=== PATIENT | female | born 1990 | race Caucasian/White ===

== ENCOUNTER 2021-04-14 09:45 | Outpatient (CLI) | payer BC ==
[2021-04-14] MEDS ORDERED: BETAMET ACET-BETAMETH SOD PHOS 6 MG/ML MDV IM SCH (10:00)
[2021-04-14 10:33] VITALS: BP 143/78; PULSE 107
== END 2021-04-14 10:30 | disposition home or self-care (01) ==
LOC: FBPOP 09:45
PROVIDERS: ATTEND Obstetrics & Gynecology Obstetrics
DX: O36.0191 Maternal care for anti-D [Rh] antibodies, unspecified trimester, fetus 1 (principal); Z3A.00 Weeks of gestation of pregnancy not specified
CPT/HCPCS: 96372; J0702

== ENCOUNTER 2021-04-15 10:40 | Outpatient (CLI) | payer BC ==
[2021-04-15] MEDS ORDERED: BETAMET ACET-BETAMETH SOD PHOS 6 MG/ML MDV IM SCH (11:00)
[2021-04-15 11:16] VITALS: BP 133/78; PULSE 104; RESP 18; TEMP 98.1
== END 2021-04-15 11:05 | disposition home or self-care (01) ==
LOC: FBPOP 10:40
PROVIDERS: ATTEND Obstetrics & Gynecology
DX: O13.3 Gestational [pregnancy-induced] hypertension without significant proteinuria, third trimester (principal); Z3A.35 35 weeks gestation of pregnancy
CPT/HCPCS: 96372; J0702

== ENCOUNTER 2021-04-28 06:20 | Inpatient (IN) | payer BC ==
[2021-04-28] MEDS ORDERED: OXYTOCIN 10 UNIT/ML 1 ML VIAL IM PRN (06:45)
[2021-04-28] MEDS ORDERED: CARBOPROST TROMETHAMINE 250 MCG/ML 1 ML AMP IM PRN (06:45)
[2021-04-28] MEDS ORDERED: METHYLERGONOVINE 0.2 MG/ML 1 ML AMP IM PRN (06:45)
[2021-04-28] MEDS ORDERED: TERBUTALINE 1 MG/ML VIAL SQ PRN (06:45)
[2021-04-28] MEDS ORDERED: LIDOCAINE 0.5% (PF) 5 MG/ML (50 ML SDV) SQ PRN (06:45)
[2021-04-28] MEDS: LACTATED RINGERS 1,000 ML IV SCH ×3 (06:58→15:17)
[2021-04-28] MEDS ORDERED: OXYTOCIN 30 UNITS/500 ML NS 30 UNIT in SALINE 1 500ML.BAG IV SCH ×2 (07:00→21:15)
[2021-04-28 07:53] LABS: Basophils % (A) 0 %; Eosinophils # (A) 0.1 k/uL (0-0.7); Eosinophils % (A) 1 %; HCT 32.6 % (34.0-46.0); HGB 11.4 gm/dL (11.4-16.0); Lymphocytes # (A) 1.6 k/uL (1.0-4.8); Lymphocytes % (A) 20 %; MCH 29.4 pg (25.0-35.0); MCHC 35.1 g/dL (31.0-37.0); MCV 83.9 fL (80.0-100.0); Mean Platelet Volume 8.8; Monocytes # (A) 0.4 k/uL (0-1.0); Monocytes % (A) 5 %; Neutrophils # (A) 5.9 k/uL (1.3-7.7); Neutrophils % (A) 73 %; Platelet Count 193 k/uL (150-450); RBC 3.88 m/uL (3.80-5.40); RDW 13.1 % (11.5-15.5); WBC 8.2 k/uL (3.8-10.6)
[2021-04-28] MEDS ORDERED: AMPICILLIN 2,000 MG in SODIUM CHLORIDE 0.9% 100 ML IVPB STA (08:24)
[2021-04-28] MEDS ORDERED: BUTORPHANOL 1 MG/ML 1 ML VIAL IV PRN (12:30)
[2021-04-28] MEDS: AMPICILLIN 1,000 MG in SODIUM CHLORIDE 0.9% 50 ML IVPB SCH ×2 (12:31→16:49)
[2021-04-28] MEDS ORDERED: SODIUM CHLORIDE 0.9% 100 ML BAG ONE (14:40)
[2021-04-28] MEDS ORDERED: fentaNYL (PF) 50 MCG/ML 5 ML AMP ONE (14:40)
[2021-04-28] MEDS ORDERED: ROPIVACAINE 5MG/ML 20ML VIAL ONE (14:40)
[2021-04-28] MEDS ORDERED: ACETAMINOPHEN TAB 325 MG TAB PO PRN (21:04)
[2021-04-28] MEDS ORDERED: ZOLPIDEM 5 MG TAB PO PRN (21:04)
[2021-04-28] MEDS ORDERED: LANOLIN CREAM 5 GM TUBE TOPICAL PRN (21:04)
[2021-04-28] MEDS ORDERED: diphenhydrAMINE 50 MG/ML 1 ML VIAL IVP PRN ×2 (21:04)
[2021-04-28] MEDS ORDERED: diphenhydrAMINE 50 MG CAP PO PRN (21:04)
[2021-04-28] MEDS ORDERED: BENZOCAINE/MENTHOL SPRAY 1 GM/SPRAY AEROSOL TOPICAL PRN (21:04)
[2021-04-28] MEDS ORDERED: HYDROCORTISONE 2.5% RECTAL CREAM 30 GM TUBE RECTAL PRN (21:04)
[2021-04-28] MEDS ORDERED: diphenhydrAMINE 25 MG CAP PO PRN (21:04)
[2021-04-28] MEDS ORDERED: SIMETHICONE 80 MG CHEWABLE PO PRN (21:04)
--- NOTE | 2021-04-28 21:10 | P.HPOB ---
History of Present Illness H&P Date: 04/28/21 Chief Complaint: IUP at 37 and 0/7 weeks, gestational hypertension this is a 30-year-old 2 para 0010 at 37-0/7 weeks that presents to labor and delivery for induction of labor secondary to gestational hypertension. Patient was diagnosed during the and was started on labetalol 100 mg twice daily. Patient has had well-controlled blood pressures 130s over 80s. Patient did receive steroids at 35 weeks of gestation. On bloodwork patient has a blood type of A+, rubella status immune, B surface antigen negative, HIV negative, RPR nonreactive, group beta strep culture was still pending at the time of delivery Patient has noted good movement throughout the , she has had an occasional contraction denies vaginal bleeding or loss of fluid. Patient was receiving testing with once weekly NSTs and growth ultrasounds. Review of Systems Constitutional: Denies chills, Denies fatigue, Denies fever Ears, nose, mouth and throat: Denies headache Cardiovascular: Reports leg edema Respiratory: Denies dyspnea Gastrointestinal: Denies nausea, Denies vomiting Genitourinary: Reports Past Medical History Additional Past Medical History / Comment(s): High Blood pressure while . History of Any Multi-Drug Resistant Organisms: None Reported Past Surgical History: No Surgical Hx Reported Past Anesthesia/Blood Transfusion Reactions: No Reported Reaction Past Psychological History: No Psychological Hx Reported Smoking Status: Former smoker Medications and Allergies Home Medications Medication Instructions Recorded Confirmed Type Aspirin [Children's Aspirin] 81 mg PO DAILY 04/14/21 04/15/21 History Labetalol [Trandate] 100 mg PO BID 04/14/21 04/28/21 History Pnv No.95/Ferrous Fum/Folic AC 1 each PO DAILY 04/14/21 04/15/21 History [ Multivitamin Tablet] Allergies Allergy/AdvReac Type Severity Reaction Status Date / Time No Known Allergies Allergy Verified 04/28/21 06:42 Exam Osteopathic Statement: *. No significant issues noted on an osteopathic structural exam other than those noted in the History and Physical/Consult. 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 heart tones are noted to be category 1 and she is amena irregularly. Results Result Diagrams: 04/28/21 07:14 Abnormal Lab Results - Last 24 Hours (Table) 04/28/21 Range/Units 07:14 Hct 32.6 L (34.0-46.0) % Assessment and Plan (1) 37 weeks gestation of Current Visit: Yes Status: Acute Code(s): Z3A.37 - 37 WEEKS GESTATION OF SNOMED Code(s): 59792567 (2) Gestational [-induced] hypertension without significant proteinuria, complicating childbirth Current Visit: Yes Status: Acute Code(s): O13.4 - GESTATNL HTN WITHOUT SIGNIFICANT PROTEIN, COMP CHILDBIRTH SNOMED Code(s): 49038309 Plan: 30-year-old 2 para 0010 at 37-0/7 weeks that presents for induction of labor secondary to gestational hypertension on labetalol twice daily. Patient is admitted to labor and delivery for Pitocin induction of labor. IV Pitocin is begun per hospital protocol. Options for analgesia are discussed including Stadol and epidural. Patient states understanding and will consider.
--- NOTE | 2021-04-28 21:14 | P.PROBDLV ---
Vaginal Delivery Note - . Vaginal Delivery Note: 30-year-old 2 para 0010 at 37-0/7 weeks with known diagnosis of gestational hypertension on labetalol presents for induction of labor. Patient was admitted to labor and delivery and Pitocin induction of labor was begun per hospital protocol. Patient underwent amniotomy and clear fluid was obtained. Patient progressed through labor eventually becoming uncomfortable receiving Stadol 1 and subsequently requesting epidural. Epidural was placed without difficulty by the anesthesia department. Patient then progressed to complete began pushing and had a normal spontaneous vaginal delivery of a viable male at 2042, weight of 7 pounds 14.3 ounces and Apgars of and 9 at one and 5 minutes respectively. After two-minute delayed the umbilical cord was doubly clamped and cut and the placenta was delivered spontaneously intact with a three-vessel cord. during clitoral laceration was appreciated therefore a midline episiotomy was performed, after delivery this was noted to be second-degree nature, and repaired in the usual fashion with 3-0 Rapide after instillation of lidocaine. Hemostasis was appreciated after closure was complete. All counts were noted be correct 2 at the end of delivery Estimated blood loss 200 mL Patient and infant tolerated delivery well and are resting comfortably.
[2021-04-29] MEDS: AMPICILLIN 1,000 MG in SODIUM CHLORIDE 0.9% 50 ML IVPB SCH ×2 (02:18→02:19)
[2021-04-29] MEDS: IBUPROFEN 600 MG TAB PO SCH ×4 (02:19→21:07)
[2021-04-29] MEDS: SENNOSIDES-DOCUSATE SODIUM 1 EACH TAB PO SCH ×2 (07:05→21:06)
[2021-04-29 07:56] LABS: Basophils % (A) 0 %; Eosinophils # (A) 0.1 k/uL (0-0.7); Eosinophils % (A) 0 %; HCT 31.6 % (34.0-46.0); HGB 10.9 gm/dL (11.4-16.0); Lymphocytes # (A) 1.6 k/uL (1.0-4.8); Lymphocytes % (A) 14 %; MCH 29.3 pg (25.0-35.0); MCHC 34.5 g/dL (31.0-37.0); MCV 85.1 fL (80.0-100.0); Mean Platelet Volume 9.1; Monocytes # (A) 0.7 k/uL (0-1.0); Monocytes % (A) 6 %; Neutrophils # (A) 9.7 k/uL (1.3-7.7); Neutrophils % (A) 80 %; Platelet Count 193 k/uL (150-450); RBC 3.71 m/uL (3.80-5.40); RDW 13.5 % (11.5-15.5); WBC 12.2 k/uL (3.8-10.6)
[2021-04-29 08:39] VITALS: RESP 16
--- NOTE | 2021-04-29 09:31 | P.PNOBGVD ---
Subjective - Subjective Principal diagnosis: day 1, status post normal spontaneous vaginal delivery, gestatio Interval history: patient is doing well this morning. She is ambulating and voiding without difficulty. She is tolerating a regular diet without nausea or vomiting. Her l ochia is moderate. She is breast feeding without difficulty. She states her pain is well-controlled with oral Motrin. blood pressures have been consistent 120s to 130s over 70s to 80s. Patient reports: Reports appetite normal, Reports voiding normally, Reports pain well controlled, Reports ambulating normally : doing well, nursing well Objective - Latest Vital Signs Latest vital signs: Vital Signs Temp Pulse Resp BP Pulse Ox 04/29/21 08:00 97.9 F 91 16 137/87 04/29/21 03:23 98.0 F 113 H 17 123/78 95 04/28/21 23:00 98.3 F 120 H 18 140/70 04/28/21 22:30 98.8 F 129 H 16 138/74 04/28/21 22:00 98.7 F 137 H 16 145/66 04/28/21 21:45 98.7 F 114 H 17 137/75 04/28/21 21:30 99.3 F 114 H 16 141/78 04/28/21 21:15 100.8 F H 114 H 15 135/67 04/28/21 21:00 99.8 F H 118 H 17 135/65 Intake and Output 04/28/21 04/29/21 04/29/21 22:59 06:59 14:59 Intake Total 180.733 Output Total 2 Balance 180.733 -2 Intake: Intake, IV Titration 180.733 Amount Oxytocin 30 Units/500 ml 180.733 Ns 30 unit In Saline 1 500ml.bag @ Per Protocol IV .Q0M [facility] Rx#:[id number] Output: Urine 2 Other: # Voids 1 - Exam Extremities: Present: normal, edema Abdomen: Present: normal appearance Uterus: Present: normal - Labs Labs: Abnormal Lab Results - Last 24 Hours (Table) 04/29/21 Range/Units 07:01 WBC 12.2 H (3.8-10.6) k/uL RBC 3.71 L (3.80-5.40) m/uL Hgb 10.9 L (11.4-16.0) gm/dL Hct 31.6 L (34.0-46.0) % Neutrophils # 9.7 H (1.3-7.7) k/uL Assessment and Plan (1) 37 weeks gestation of Current Visit: Yes Status: Acute Code(s): Z3A.37 - 37 WEEKS GESTATION OF SNOMED Code(s): 49834676 (2) Gestational [-induced] hypertension without significant proteinuria, complicating childbirth Current Visit: Yes Status: Acute Code(s): O13.4 - GESTATNL HTN WITHOUT SIGNIFICANT PROTEIN, COMP CHILDBIRTH SNOMED Code(s): 38298058 (3) Status post normal vaginal delivery Current Visit: Yes Status: Acute Code(s): SOM2846 - SNOMED Code(s): 78438 8006 (4) Obstetric vaginal laceration with second degree perineal laceration Current Visit: Yes Status: Acute Code(s): O70.1 - SECOND DEGREE PERINEAL LACERATION DURING DELIVERY SNOMED Code(s): 290130779 Plan: 30-year-old G1 now P1 status post normal spontaneous vaginal delivery. Patient was delivered at 37 weeks secondary to her diagnosis of gestational hypertension in this and subsequent labetalol use. Patient has been doing well . Anticipate discharge home tomorrow. We'll continue routine care.
[2021-04-30] MEDS: IBUPROFEN 600 MG TAB PO SCH ×2 (00:27→08:13)
[2021-04-30] MEDS: SENNOSIDES-DOCUSATE SODIUM 1 EACH TAB PO SCH (08:13)
--- NOTE | 2021-04-30 09:15 | P.DS ---
Providers Date of admission: 04/28/21 06:20 Expected date of discharge: 04/30/21 Attending physician: Paige Martinez Primary care physician: Priya Ndiaye [facility] Hospital Course: This is a 30-year-old female 2 para 0010 EDC 1220 08/15/1937 weeks gestation. Patient had a history of gestational hypertension, blood pressure on admission 128/75. She was admitted for induction for same. Group B strep cultures unknown, please see dictated history and physical for details. Artificial amniorrhexis revealed clear fluid. Epidural was placed oxytocin titrated. Patient went on to deliver vaginally a liveborn male infant with scores of 8 and 9 at one and 5 minutes respectively. He weighed 7 lbs. 14 oz. or 3580 g. The was a small second-degree perineal laceration easily repaired. Please see dictated delivery note for details. Ampicillin was given prophylactically, Multiple Doses Received. This Morning the Patient Is Doing Well. She Is Voiding, Ambulating, Passing Flatus without Difficulty. Vital Signs Are Stable and She Is Afebrile. Blood Pressure Has Normalized, 120s over 70s to 80s. Circumcision Has Been Performed. Patient Is Judged to Be in Very Good Condition for Discharge Home. She Will Follow-Up with Her Primary Computer Aide in 2 Weeks for Blood Pressure Check. I Have Reminded Her No [place], Tampons or Douching. She will call with any fevers shakes or chills, foul smelling or copious lochia, with the passage of large blood clots, with any pain not alleviated by Advil, Motrin, or Aleve, or indeed with any concerns. I've asked her to continue taking home blood pressure measurements and to call if any elevation is noted. Assessment: Well second day Patient Condition at Discharge: Good Plan - Discharge Summary Discharge Rx Participant: No New Discharge Prescriptions: No Action Aspirin [Children's Aspirin] 81 mg PO DAILY Labetalol [Trandate] 100 mg PO BID Pnv No.95/Ferrous Fum/Folic AC [ Multivitamin Tablet] 1 each PO DAILY Discharge Medication List Aspirin [Children's Aspirin] 81 mg PO DAILY 04/14/21 [History] Labetalol [Trandate] 100 mg PO BID 04/14/21 [History] Pnv No.95/Ferrous Fum/Folic AC [ Multivitamin Tablet] 1 each PO DAILY 04/14/21 [History] Follow up Appointment(s)/Referral(s): Paige Martinez DO [Doctor of Osteopathic Medicine] - 2 Weeks
[2021-04-30 10:40] VITALS: BP 149/62; PULSE 104; TEMP 97.8
== END 2021-04-30 14:00 | disposition home or self-care (01) | DRG 807 ==
LOC: 4FBP 06:20
PROVIDERS: ADMIT Obstetrics & Gynecology Obstetrics; ATTEND Obstetrics & Gynecology Obstetrics
PROC: 3E033VJ Introduction of Other Hormone into Peripheral Vein, Percutaneous Approach (ICD-10-PCS; principal; 2021-04-28)
PROC: 10E0XZZ Delivery of Products of Conception, External Approach (ICD-10-PCS; 2021-04-28)
PROC: 0KQM0ZZ Repair Perineum Muscle, Open Approach (ICD-10-PCS; 2021-04-28)
PROC: 10907ZC Drainage of Amniotic Fluid, Therapeutic from Products of Conception, Via Natural or Artificial Opening (ICD-10-PCS; 2021-04-28)
DX: O13.4 Gestational [pregnancy-induced] hypertension without significant proteinuria, complicating childbirth (principal); Z37.0 Single live birth; O70.1 Second degree perineal laceration during delivery; Z3A.37 37 weeks gestation of pregnancy; Z79.82 Long term (current) use of aspirin; Z87.891 Personal history of nicotine dependence
CPT/HCPCS: 85025; 86850; 86900; 86901

== ENCOUNTER → 2022-12-28 | Outpatient (CLI) | payer OTHER | END | disposition home or self-care (01) | LOC: LABWHC1 15:09 | PROVIDERS: ATTEND Obstetrics & Gynecology Obstetrics | DX: D68.51 Activated protein C resistance (principal) | CPT/HCPCS: 36415; 81241 ==

== ENCOUNTER 2023-04-26 06:00 | Inpatient (IN) | payer OTHER ==
[2023-04-26] MEDS ORDERED: miSOPROStoL 200 MCG TAB PO PRN (10:21)
[2023-04-26] MEDS ORDERED: CARBOPROST TROMETHAMINE 250 MCG/ML 1 ML AMP IM PRN (10:21)
[2023-04-26] MEDS ORDERED: TERBUTALINE 1 MG/ML VIAL SQ PRN (10:21)
[2023-04-26] MEDS ORDERED: OXYTOCIN 10 UNIT/ML 1 ML VIAL IM PRN (10:21)
[2023-04-26] MEDS ORDERED: LIDOCAINE 0.5% (PF) 5 MG/ML (50 ML SDV) SQ PRN (10:21)
[2023-04-26] MEDS ORDERED: TRANEXAMIC 1,000 MG/100ML-NACL 1,000 MG in EMPTY BAG 1 BAG IV PRN (10:21)
[2023-04-26] MEDS ORDERED: METHYLERGONOVINE 0.2 MG/ML 1 ML AMP IM PRN (10:21)
[2023-04-26] MEDS ORDERED: OXYTOCIN 30 UNITS/500 ML NS 30 UNIT in SALINE 1 500ML.BAG IV SCH (10:30)
[2023-04-26] MEDS: LACTATED RINGERS 1,000 ML IV SCH ×2 (10:33→19:00)
[2023-04-26 10:48] LABS: Basophils % (A) 0 %; Eosinophils # (A) 0.1 k/uL (0-0.7); Eosinophils % (A) 1 %; HCT 35.2 % (34.0-46.0); HGB 11.9 gm/dL (11.4-16.0); Lymphocytes # (A) 1.5 k/uL (1.0-4.8); Lymphocytes % (A) 19 %; MCH 28.6 pg (25.0-35.0); MCHC 33.9 g/dL (31.0-37.0); MCV 84.3 fL (80.0-100.0); Mean Platelet Volume 8.8; Monocytes # (A) 0.4 k/uL (0-1.0); Monocytes % (A) 5 %; Neutrophils # (A) 5.6 k/uL (1.3-7.7); Neutrophils % (A) 73 %; Platelet Count 217 k/uL (150-450); RBC 4.18 m/uL (3.80-5.40); RDW 13.7 % (11.5-15.5); WBC 7.6 k/uL (3.8-10.6)
[2023-04-26 11:06] LABS: INR 0.9 (<1.2); Prothrombin Time 10.2 sec (10.0-12.5)
[2023-04-26] MEDS ORDERED: NALBUPHINE 10 MG/ML (10 ML MDV) IV PRN (15:46)
--- NOTE | 2023-04-26 16:52 | P.HPOB ---
History of Present Illness H&P Date: 04/26/23 Chief Complaint: IUP at 37 and 4, preeclampsia without severe features This is a 32-year-old 2 para 1 at 37-4/7 weeks that presents to labor and delivery from the office with noted elevated blood pressures. Patient has known chronic hypertension is been taking labetalol throughout the . Patient had a noted blood pressure 160/90 this morning in the office. Patient denied signs or symptoms of preeclampsia, headache right upper quadrant pain or epigastric pain. Patient denies headaches. Patient notes good movement. Patient was receiving routine care with slight elevation of blood pressures noted of the last 2 weeks. Patient was counseled on the need for delivery secondary to chronic hypertension with superimposed pre-eclampsia wi thout severe features. Review of Systems Constitutional: Denies chills, Denies fatigue, Denies fever Ears, nose, mouth and throat: Denies headache Cardiovascular: Denies leg edema Respiratory: Denies dyspnea Gastrointestinal: Denies constipation, Denies nausea, Denies vomiting Genitourinary: Reports Past Medical History Past Medical History: No Reported History Additional Past Medical History / Comment(s): High Blood pressure while . History of Any Multi-Drug Resistant Organisms: None Reported Past Surgical History: No Surgical Hx Reported Past Anesthesia/Blood Transfusion Reactions: No Reported Reaction Past Psychological History: No Psychological Hx Reported Smoking Status: Former smoker Past Alcohol Use History: None Reported Past Drug Use History: None Reported - Past Family History Mother Family Medical History: Congestive Heart Failure (CHF) Father Family Medical History: Congestive Heart Failure (CHF), Hypertension Medications and Allergies Home Medications Medication Instructions Recorded Confirmed Type Aspirin [Children's Aspirin] 81 mg PO DAILY 04/14/21 04/26/23 History Labetalol [Trandate] 100 mg PO BID 04/14/21 04/26/23 History Pnv No.95/Ferrous Fum/Folic AC 1 each PO DAILY 04/14/21 04/26/23 History [ Multivitamin Tablet] Allergies Allergy/AdvReac Type Severity Reaction Status Date / Time No Known Allergies Allergy Verified 04/26/23 10:20 Exam Osteopathic Statement: *. No significant issues noted on an osteopathic structural exam other than those noted in the History and Physical/Consult. 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 heart tones are be category 1 and she is amena irregularly. Results Result Diagrams: 04/26/23 10:30 Assessment and Plan (1) Chronic hypertension Current Visit: Yes Status: Acute Code(s): I10 - ESSENTIAL (PRIMARY) HYPERTEN FADI SNOMED Code(s): 49789280 (2) 37 weeks gestation of Current Visit: No Status: Acute Code(s): Z3A.37 - 37 WEEKS GESTATION OF SNOMED Code(s): 72767455 Plan: 32-year-old at 37-4/7 weeks presents for induction of labor secondary to chronic hypertension with superimposed preeclampsia without severe features. Patient had elevated blood pressures in the office 160/90, denied signs or symptoms of . Blood pressures at home ranging from 130s over higher 80s. Patient did note an increase of last week at her blood pressures. Patient was admitted and Pitocin induction of labor is begun. Options for analgesia discussed including Nubain epidural. Patient does desire epidural when appropriate. And states spontaneous vaginal delivery.
[2023-04-26] MEDS ORDERED: SODIUM CHLORIDE 0.9% 250 ML BAG ONE (17:15)
[2023-04-26] MEDS ORDERED: ROPIVACAINE 5 MG/ML 30 ML VIAL ONE (17:15)
[2023-04-26] MEDS ORDERED: fentaNYL (PF) 50 MCG/ML 5 ML AMP ONE (17:15)
[2023-04-26] MEDS ORDERED: BENZOCAINE/MENTHOL SPRAY 1 GM/SPRAY AEROSOL TOPICAL PRN (18:08)
[2023-04-26] MEDS ORDERED: diphenhydrAMINE 50 MG/ML 1 ML VIAL IVP PRN ×2 (18:08)
[2023-04-26] MEDS ORDERED: SIMETHICONE 80 MG CHEWABLE PO PRN (18:08)
[2023-04-26] MEDS ORDERED: diphenhydrAMINE 25 MG CAP PO PRN (18:08)
[2023-04-26] MEDS ORDERED: diphenhydrAMINE 50 MG CAP PO PRN (18:08)
[2023-04-26] MEDS ORDERED: ZOLPIDEM 5 MG TAB PO PRN (18:08)
[2023-04-26] MEDS ORDERED: LANOLIN CREAM 5 GM TUBE TOPICAL PRN (18:08)
[2023-04-26] MEDS ORDERED: HYDROCORTISONE 2.5% RECTAL CREAM 30 GM TUBE RECTAL PRN (18:08)
--- NOTE | 2023-04-26 18:13 | P.PROBDLV ---
Vaginal Delivery Note - . Vaginal Delivery Note: Findings: Viable female delivered at 1747, weight of 7 pounds 2.5 ounces 32-year-old at 37-4/7 weeks that presents to labor and delivery from the office with noted elevated blood pressures. Patient does have a history of chronic hypertension on labetalol blood pressure in the office noted to be 160/90. Diagnosis of chronic hypertension with superimposed preeclampsia without severe features is made. Patient denies any signs or symptoms of preeclampsia. Patient was admitted and Pitocin induction of labor was begun. Once regular contractions were noted amniotomy was performed and clear fluid was obtained. Patient progressed in labor eventually becoming of comfortable and requesting Nubain. Nubain was given with minimal relief. Patient was noted to be 4 cm dilated. Patient requested epidural. Epidural was placed with no relief of pain control upon examination she was noted to be 9 cm dilated. Patient began pushing and had a normal spontaneous vaginal delivery of a viable female infant at 1747, weight of 7 pounds 2.5 ounces, loose nuchal cord was delivered through. After two-minute delayed the umbilical cords doubly clamped and cut. The sponge was delivered spontaneously intact with three-vessel cord being noted. Uterus is noted be firm and below the umbilicus after delivery the placenta. On inspection the patient's vaginal vault a small first-degree vaginal laceration was appreciated along with a clitoral laceration both laceration sites were injected with lidocaine the vaginal laceration was repaired with 3-0 Rapide in the usual fashion. The clitoral laceration was repaired with 4-0 chromic in a running fashion. Hemostasis was appreciated after closure of lacerations. All counts were noted to be correct 2 at the end of the delivery. Patient and infant tolerated delivery well and are resting comfortably.
[2023-04-26] MEDS: IBUPROFEN 600 MG TAB PO SCH (18:28)
[2023-04-26 20:35] VITALS: RESP 16
[2023-04-26] MEDS: SENNOSIDES-DOCUSATE SODIUM 1 EACH TAB PO SCH (21:07)
[2023-04-26] MEDS: ACETAMINOPHEN TAB 325 MG TAB PO PRN (23:27)
[2023-04-27] MEDS: IBUPROFEN 600 MG TAB PO SCH ×3 (05:29→14:50)
[2023-04-27] MEDS: SENNOSIDES-DOCUSATE SODIUM 1 EACH TAB PO SCH (08:29)
[2023-04-27] MEDS ORDERED: PRENATAL VIT-IRON-FOLIC ACID 1 EACH TABLET PO SCH (09:00)
--- NOTE | 2023-04-27 11:30 | P.DS ---
Providers Date of admission: 04/26/23 10:05 Expected date of discharge: 04/27/23 Attending physician: Paige Martinez Primary care physician: Stated None - Discharge Diagnosis(es) (1) Chronic hypertension Current Visit: Yes Status: Acute (2) 37 weeks gestation of Current Visit: No Status: Acute (3) Obstetric vaginal laceration with first degree perineal laceration Current Visit: Yes Status: Acute (4) Status post normal vaginal delivery Current Visit: No Status: Acute Hospital Course: This is a 32-year-old 2 now para 2 that presented to labor and delivery from the office yesterday at 37-4/7 weeks with noted elevated blood pressure. Patient does have a history of chronic hypertension was on labetalol. Patient's blood pressure the office 160/90. Patient was counseled on the need for induction of labor secondary to chronic hypertension was superimposed preeclampsia without severe features. Patient was admitted and Pitocin induction of labor was begun. Amniotomy is performed and clear fluid was obtained. Patient did receive Nubain 1 for pain control and then requested epidural. Epidural was placed with no relief of discomfort, patient was noted to be 9 cm at that time. Patient made quick progress to complete began pushing and had a normal spontaneous vaginal delivery of a viable female infant at 1747, weight of 7 pounds 2.5 ounces, Apgars of 9 and 9 at one and 5 minutes respectively. Patient's post course has been uneventful. On this day #1 she is ambulating and voiding without difficulty. She states she feels well. Blood pressures have been controlled. Highest blood pressure noted 144/89. Patient denies any signs or symptoms of preeclampsia. Patient has not taken her labetalol this morning. Patient is breast-feeding without difficulty. Lochia is moderate. She denies concerns and would like discharge home at 24 hours if possible. Patient Condition at Discharge: Good Plan - Discharge Summary New Discharge Prescriptions: No Action Aspirin [Children's Aspirin] 81 mg PO DAILY Labetalol [Trandate] 100 mg PO BID Pnv No.95/Ferrous Fum/Folic AC [ Multivitamin Tablet] 1 each PO DAILY Discharge Medication List Aspirin [Children's Aspirin] 81 mg PO DAILY 04/14/21 [History] Labetalol [Trandate] 100 mg PO BID 04/14/21 [History] Pnv No.95/Ferrous Fum/Folic AC [ Multivitamin Tablet] 1 each PO DAILY 04/14/21 [History] Follow up Appointment(s)/Referral(s): Paige Martinez DO [Doctor of Osteopathic Medicine] - 2 Weeks Patient Instructions/Handouts: Vaginal Delivery (DC), Vaginal Delivery (GEN) Activity/Diet/Wound Care/Special Instructions: No tub baths or intercourse until 6 weeks . Patient's continue to monitor blood pressures at home and call with any elevated blood pressures greater 150/100. Patient has a blood pressure cuff at home and is well versed in this as she is noted throughout the . Patient is counseled on [id number] ibuprofen as needed for pain. Should she have any concerns prior to HER-2 week blood pressure check she is urged to call the office and be seen sooner. Discharge Disposition: HOME SELF-CARE
[2023-04-27] MEDS: ACETAMINOPHEN TAB 325 MG TAB PO PRN ×2 (11:59→18:05)
[2023-04-27 18:35] VITALS: BP 126/84; PULSE 80; TEMP 97.9
== END 2023-04-27 18:20 | disposition home or self-care (01) | DRG 768 ==
LOC: 4FBP 10:05
PROVIDERS: ADMIT Obstetrics & Gynecology Obstetrics; ATTEND Obstetrics & Gynecology Obstetrics
PROC: 10E0XZZ Delivery of Products of Conception, External Approach (ICD-10-PCS; principal; 2023-04-26)
PROC: 0UQJXZZ Repair Clitoris, External Approach (ICD-10-PCS; 2023-04-26)
PROC: 3E033VJ Introduction of Other Hormone into Peripheral Vein, Percutaneous Approach (ICD-10-PCS; 2023-04-26)
PROC: 10907ZC Drainage of Amniotic Fluid, Therapeutic from Products of Conception, Via Natural or Artificial Opening (ICD-10-PCS; 2023-04-26)
PROC: 0HQ9XZZ Repair Perineum Skin, External Approach (ICD-10-PCS; 2023-04-26)
DX: O10.02 Pre-existing essential hypertension complicating childbirth (principal); Z37.0 Single live birth; O11.4 Pre-existing hypertension with pre-eclampsia, complicating childbirth; O70.0 First degree perineal laceration during delivery; O71.89 Other specified obstetric trauma; O69.81X0 Labor and delivery complicated by cord around neck, without compression, not applicable or unspecified; Z3A.37 37 weeks gestation of pregnancy; Z79.82 Long term (current) use of aspirin; Z87.891 Personal history of nicotine dependence; Z28.310 Unvaccinated for COVID-19; Z82.49 Family history of ischemic heart disease and other diseases of the circulatory system
CPT/HCPCS: 85025; 85610; 85730; 86850; 86900; 86901